=== PATIENT | male | born 1955 | race Two or more races ===

== ENCOUNTER 2021-02-20 17:28 | Outpatient (AMBR) | payer BC, SELFPAY ==
--- NOTE | 2021-01-29 11:24 | PT.OIERPT ---
PT OP Initial Eval Patient Information Visit Reasons: RIGHT SHOULDER PAIN Medical Diagnosis: M25.511 Treatment Dx #1: R shoulder weakness Start of Care: 01/29/21 Date of Onset: Oct 30, 2020 Initial Assessment Subjective Pt is 65 yr old male who reports onset of R biceps weakness and mild, achy pain that is dull in October. He got the Covid shot on L shoulder the day before and woke up the next day with biceps weakness. 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 PMH: Type 2 DM, allergies, HTN Imaging: with provider Pt goal: to regain R UE strength and movement and be back where I want to be Objective R shoulder AROM: Strength: FF: full 3+/5 abd: full 3+/5 Erot: full R elbow AROM: Strength: Flexion: full 3+/5 Extension: full Mid trapezius: 3+/5 Low trapezius: 3+/5 special testing: Deandra Darrion: negative Drop arm: negative Robbins's: negative C/S screen: negative for referred pain TTP: moderate over long head of biceps at bicipital groove. Neuro: DTR's C5,6 2+ Assessment Pt presents with marked R bicep weakness and moderate TTP of long head biceps tendon. Pt has periscapular mm weakness of low and mid trapezius and R shoulder is higher and shoulders shifted to the R in standing. Pt requires skilled therapy in order to improve scapular stability and R UE strength and he has fair rehab potential. Eval followed by HEP with materials. 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 Ind with HEP 2. Improved bicep, mid and low trapezius strength to at least 4/5 3. Pt will be able to lift at least 10lbs on the R Treatment Plan 1. Manual therapy 2 Therex 3. Modalities as indicated, MHP, ice, TENS Frequency and Duration 2x a week for 6 weeks Certification Dates: 01/29/21 to 05/01/21 Office Procedures PT Procedures PT Date of Service: 01/29/21 OP PT Eval Mod Complex 30 minutes: Yes
--- NOTE | 2021-02-03 19:47 | PTNOTE_ITS ---
PT Outpatient Daily Note Date of Service: 02/03/21 OP Daily Note Visit Reasons: RIGHT SHOULDER PAIN Outpatient Physical Therapy Treatment Date: 02/03/21 Subjective: Pt reports pain at the lower tip of the R scapula. Objective: See F/S for therex MT: STM R scapular borders x15' Assessment: Pt has good scapular depression strength but pain refers from lower pole of scapula to upper T/S and from T6 region along rib to anterior ribs. Plan: Continue per POC Length of Time (minutes) of Treatment: 30 Minutes Office Procedures PT Procedures PT Date of Service: 01/29/21 OP PT Eval Mod Complex 30 minutes: Yes PT Procedures PT Date of Service: 02/03/21 Therapeutic Exercise 15 minutes: Yes Manual Infrastructure Project Manager 15 minutes: Yes
--- NOTE | 2021-02-05 18:51 | PT.ODAYNRPT ---
PT Outpatient Daily Note Date of Service: 02/05/21 OP Daily Note Visit Reasons: RIGHT SHOULDER PAIN Outpatient Physical Therapy Treatment Date: 02/05/21 Subjective: Pt reports pain at the lower tip of the R scapula. 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 He was unable to lift bodyblade today into elbow flexion. Plan: Continue per POC Length of Time (minutes) of Treatment: 30 Minutes Office Procedures PT Procedures PT Date of Service: 01/29/21 OP PT Eval Mod Complex 30 minutes: Yes PT Procedures PT Date of Service: 02/03/21 Therapeutic Exercise 15 minutes: Yes Manual Purchasing Analyst 15 minutes: Yes PT Procedures PT Date of Service: 02/05/21 Therapeutic Exercise 15 minutes: Yes Manual Purchasing Analyst 15 minutes: Yes
--- NOTE | 2021-02-11 18:43 | PTNOTE_ITS ---
PT Outpatient Daily Note Date of Service: 02/11/21 OP Daily Note Visit Reasons: RIGHT SHOULDER PAIN Outpatient Physical Therapy Treatment Date: 02/11/21 Subjective: Pt reports pain at the lower tip of the R scapula. 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 He was unable to lift bodyblade today into elbow flexion. Plan: Continue per POC Office Procedures PT Procedures PT Date of Service: 01/29/21 OP PT Eval Mod Complex 30 minutes: Yes PT Procedures PT Date of Service: 02/03/21 Therapeutic Exercise 15 minutes: Yes Manual Clinical Psychologist Licensed 15 minutes: Yes PT Procedures PT Date of Service: 02/05/21 Therapeutic Exercise 15 minutes: Yes Manual Clinical Psychologist Licensed 15 minutes: Yes PT Procedures PT Date of Service: 02/11/21 Therapeutic Exercise 30 minutes: Yes
--- NOTE | 2021-02-13 18:17 | PT.ODAYNRPT ---
PT Outpatient Daily Note Date of Service: 02/13/21 OP Daily Note Visit Reasons: RIGHT SHOULDER PAIN Outpatient Physical Therapy Treatment Date: 02/13/21 Subjective: Pt reports pain at the lower tip of the R scapula. Objective: See F/S for therex MT: STM pec minor and periscapular mm's on R, x10' Assessment: Pt has less pain of R scalenes upper brachial plexus area today but continued periscapular mm weakness along with biceps and deltoid weakness. He was able to lift bodyblade today into elbow flexion for about 1-2 minutes. Plan: Continue per POC Length of Time (minutes) of Treatment: 30 Minutes Office Procedures PT Procedures PT Date of Service: 01/29/21 OP PT Eval Mod Complex 30 minutes: Yes PT Procedures PT Date of Service: 02/03/21 Therapeutic Exercise 15 minutes: Yes Manual Spine Supervisor 15 minutes: Yes PT Procedures PT Date of Service: 02/05/21 Therapeutic Exercise 15 minutes: Yes Manual Spine Supervisor 15 minutes: Yes PT Procedures PT Date of Service: 02/11/21 Therapeutic Exercise 30 minutes: Yes PT Procedures PT Date of Service: 02/13/21 Therapeutic Activity 15 minutes: Yes Manual Spine Supervisor 15 minutes: Yes
--- NOTE | 2021-02-18 20:02 | PTNOTE_ITS ---
PT Outpatient Daily Note Date of Service: 02/18/21 OP Daily Note Visit Reasons: RIGHT SHOULDER PAIN Outpatient Physical Therapy Treatment Date: 02/18/21 Subjective: Pt reports he feels weaker than before in the R bicep Objective: See F/S for therex Assessment: Pt has less pain of R scalenes upper brachial plexus area today but continued periscapular mm weakness along with biceps and deltoid weakness. He was able to lift bodyblade today into elbow flexion for about 1 minute. Plan: Continue per POC Length of Time (minutes) of Treatment: 30 Minutes Office Procedures PT Procedures PT Date of Service: 01/29/21 OP PT Eval Mod Complex 30 minutes: Yes PT Procedures PT Date of Service: 02/03/21 Therapeutic Exercise 15 minutes: Yes Manual Assembling Fabricator 15 minutes: Yes PT Procedures PT Date of Service: 02/05/21 Therapeutic Exercise 15 minutes: Yes Manual Assembling Fabricator 15 minutes: Yes PT Procedures PT Date of Service: 02/11/21 Therapeutic Exercise 30 minutes: Yes PT Procedures PT Date of Service: 02/18/21 Therapeutic Exercise 30 minutes: Yes PT Procedures PT Date of Service: 02/13/21 Therapeutic Activity 15 minutes: Yes Manual Assembling Fabricator 15 minutes: Yes
--- NOTE | 2021-02-20 18:19 | PTNOTE_ITS ---
PT Outpatient Daily Note Date of Service: 02/20/21 OP Daily Note Visit Reasons: RIGHT SHOULDER PAIN Outpatient Physical Therapy Treatment Date: 02/20/21 Subjective: Pt reports he feels weaker than before in the R bicep Objective: See F/S for therex Assessment: Pt has less pain of R scalenes upper brachial plexus area today but continued periscapular mm weakness along with biceps and deltoid weakness. He was able to lift bodyblade today into elbow flexion for about 1 minute. Plan: Continue per POC Length of Time (minutes) of Treatment: 30 Minutes Office Procedures PT Procedures PT Date of Service: 01/29/21 OP PT Eval Mod Complex 30 minutes: Yes PT Procedures PT Date of Service: 02/03/21 Therapeutic Exercise 15 minutes: Yes Manual Tool And Machine Maintainer 15 minutes: Yes PT Procedures PT Date of Service: 02/05/21 Therapeutic Exercise 15 minutes: Yes Manual Tool And Machine Maintainer 15 minutes: Yes PT Procedures PT Date of Service: 02/11/21 Therapeutic Exercise 30 minutes: Yes PT Procedures PT Date of Service: 02/18/21 Therapeutic Exercise 30 minutes: Yes PT Procedures PT Date of Service: 02/20/21 Therapeutic Exercise 30 minutes: Yes PT Procedures PT Date of Service: 02/13/21 Therapeutic Activity 15 minutes: Yes Manual Tool And Machine Maintainer 15 minutes: Yes
== END 2021-02-24 23:59 | disposition home or self-care (01) ==
PROVIDERS: PCP Family Medicine; Referring Provider Family Medicine; Visit Provider Family Medicine
DX: M25.511 Pain in right shoulder (principal); R53.1 Weakness; E11.9 Type 2 diabetes mellitus without complications; I10 Essential (primary) hypertension
CPT/HCPCS: 97110; 97140; 97162; 97530

== ENCOUNTER 2021-03-24 17:19 | Outpatient (AMBR) | payer BC, SELFPAY ==
--- NOTE | 2021-02-25 18:43 | PTNOTE_ITS ---
PT Outpatient Daily Note Date of Service: 02/25/21 OP Daily Note Visit Reasons: RIGHT SHOULDER PAIN Outpatient Physical Therapy Treatment Date: 02/25/21 Subjective: Pt reports pain of R scapula and points to medial border and inferior pole and sites of pain Objective: See F/S for therex MT: STM medial and inferior scap borders x10' Assessment: Pt has periscapular mm weakness and pain of medial and inferior scapula borders. Plan: Continue per POC Length of Time (minutes) of Treatment: 45 Minutes Office Procedures PT Procedures PT Date of Service: 02/25/21 Therapeutic Exercise 30 minutes: Yes Manual Director Epidemiology 15 minutes: Yes
--- NOTE | 2021-02-27 18:44 | PT.ODAYNRPT ---
PT Outpatient Daily Note Date of Service: 02/27/21 OP Daily Note Visit Reasons: RIGHT SHOULDER PAIN Outpatient Physical Therapy Treatment Date: 02/27/21 Subjective: Pt reports pain of R scapula and points to medial border and inferior pole and sites of pain. The R bicep is slightly stronger since starting therapy. Objective: See F/S for therex Assessment: Pt has periscapular mm weakness and pain of medial and inferior scapula borders. Plan: Continue per POC Length of Time (minutes) of Treatment: 30 Minutes Office Procedures PT Procedures PT Date of Service: 02/27/21 Therapeutic Exercise 30 minutes: Yes PT Procedures PT Date of Service: 02/25/21 Therapeutic Exercise 30 minutes: Yes Manual Heavy Duty Truck Mechanic 15 minutes: Yes
--- NOTE | 2021-03-03 18:35 | PT.ODAYNRPT ---
PT Outpatient Daily Note Date of Service: 03/03/21 OP Daily Note Visit Reasons: RIGHT SHOULDER PAIN Outpatient Physical Therapy Treatment Date: 03/03/21 Subjective: Pt reports pain of R scapula and points to medial border and inferior pole and sites of pain. The R bicep is slightly stronger since starting therapy. Objective: See F/S for therex Assessment: Pt has periscapular mm weakness and pain of medial and inferior scapula borders. Good response to foam roller to reduce back pain today. Plan: Continue per POC Length of Time (minutes) of Treatment: 30 Minutes Office Procedures PT Procedures PT Date of Service: 02/27/21 Therapeutic Exercise 30 minutes: Yes PT Procedures PT Date of Service: 03/03/21 Therapeutic Exercise 30 minutes: Yes PT Procedures PT Date of Service: 02/25/21 Therapeutic Exercise 30 minutes: Yes Manual Environmental Management Specialist 15 minutes: Yes
--- NOTE | 2021-03-17 18:18 | PTNOTE_ITS ---
PT Outpatient Daily Note Date of Service: 03/17/21 OP Daily Note Visit Reasons: RIGHT SHOULDER PAIN Outpatient Physical Therapy Treatment Date: 03/17/21 Subjective: Pt reports pain of R scapula and points to medial border and inferior pole and sites of pain. The R bicep is slightly stronger since starting therapy. Objective: See F/S for therex Assessment: Pt has periscapular mm weakness and pain of medial and inferior scapula borders. Good response to foam roller to reduce back pain today. Plan: Continue per POC Length of Time (minutes) of Treatment: 30 Minutes Office Procedures PT Procedures PT Date of Service: 02/27/21 Therapeutic Exercise 30 minutes: Yes PT Procedures PT Date of Service: 03/03/21 Therapeutic Exercise 30 minutes: Yes PT Procedures PT Date of Service: 03/17/21 Therapeutic Exercise 30 minutes: Yes PT Procedures PT Date of Service: 02/25/21 Therapeutic Exercise 30 minutes: Yes Manual Dehydrogenation Operator Head 15 minutes: Yes
--- NOTE | 2021-03-24 18:45 | PT.ODAYNRPT ---
PT Outpatient Daily Note Date of Service: 03/24/21 OP Daily Note Visit Reasons: RIGHT SHOULDER PAIN Outpatient Physical Therapy Treatment Date: 03/24/21 Subjective: Pt reports pain of R scapula and points to medial border and inferior pole and sites of pain. The R bicep is slightly stronger since starting therapy. Objective: See F/S for therex MT: STM R medial scap border and levator scap mm, HVT x3 PA to T/S x10' total Assessment: Pt has periscapular mm weakness and pain of medial and inferior scapula borders. R medial scapular border pain may be related to R biceps weakness. Plan: Continue per POC Length of Time (minutes) of Treatment: 30 Minutes Office Procedures PT Procedures PT Date of Service: 02/27/21 Therapeutic Exercise 30 minutes: Yes PT Procedures PT Date of Service: 03/03/21 Therapeutic Exercise 30 minutes: Yes PT Procedures PT Date of Service: 03/17/21 Therapeutic Exercise 30 minutes: Yes PT Procedures PT Date of Service: 02/25/21 Therapeutic Exercise 30 minutes: Yes Manual Professional Healthcare Representative 15 minutes: Yes PT Procedures PT Date of Service: 03/24/21 Therapeutic Exercise 15 minutes: Yes Manual Professional Healthcare Representative 15 minutes: Yes
== END 2021-03-26 23:59 | disposition home or self-care (01) ==
PROVIDERS: PCP Family Medicine; Referring Provider Family Medicine; Visit Provider Family Medicine
DX: M25.511 Pain in right shoulder (principal); R53.1 Weakness; E11.9 Type 2 diabetes mellitus without complications; I10 Essential (primary) hypertension
CPT/HCPCS: 97110; 97140

== ENCOUNTER 2021-04-01 17:35 | Outpatient (AMBR) | payer BC, SELFPAY ==
--- NOTE | 2021-04-01 19:08 | PT.ODS1RPT ---
PT OP Progress/Discharge Note Date of Service: 04/01/21 Progress Note/DC Note Progress Note/Discharge Note: DC Note Patient Information Visit Reasons: RIGHT SHOULDER PAIN Service Continue Service or Discharge: Discharge Discharge Date: 04/01/21 Status Subjective: Pt reports improved R bicep strength since starting therapy but is not where I want to be and wants to be stronger Objective: R biceps strength: 3+/5 R shoulder strength: FF: 4-/5 Abd: 4-/5 Assessment: Pt has attended 12/12 visits on the plan of care and made slow progress with biceps strengthening. He can hold about 7 lbs for about 30 seconds maximum. He has improved shoulder strength and improved therex endurance grossly but continued bicep weakness possibly consistent with C5 nerve impingement, brachial plexus injury like Erb's palsy and/or a T4 syndrome peripheral neuropathy. He may benefit from further diagnostic imaging. Pt is not having significant pain just marked bicep weakness. Plan: Pt is discharged to provider for further workup Office Procedures PT Procedures PT Date of Service: 04/01/21 Therapeutic Exercise 30 minutes: Yes
== END 2021-04-26 23:59 | disposition home or self-care (01) ==
PROVIDERS: PCP Family Medicine; Referring Provider Family Medicine; Visit Provider Family Medicine
DX: M25.511 Pain in right shoulder (principal); R53.1 Weakness; E11.9 Type 2 diabetes mellitus without complications; I10 Essential (primary) hypertension
CPT/HCPCS: 97110

== ENCOUNTER → 2024-12-22 | Outpatient (CLI) | payer OTHER, SELFPAY ==
[2024-12-22 12:29] LABS: Collection Type, Urine Clean Catch; Squamous Epithelial Cell,Urine 0 /hpf (0-5)
[2024-12-22 12:38] LABS: Basophils % (Auto) 1 % (0-2.5); Eosinophils # (Auto) 0.1 Thou/mm3 (0.0-0.5); Eosinophils % (Auto) 1 % (0-10); Hematocrit 36.6 % (41.0-53.0); Hemoglobin 13.2 g/dL (13.5-16.0); Immature Granulocytes % (Auto) 0 % (0-0); Immature Granulocytes Auto 0.03 Thou/mm3 (0.00-0.00); Lymphocytes # (Auto) 1.6 Thou/mm3 (1.0-4.8); Lymphocytes % (Auto) 23 % (10-50); Mean Corpuscular HGB Conc 36.1 g/dl (31.0-37.0); Mean Corpuscular Hemoglobin 30.4 pg (25.0-35.0); Mean Corpuscular Volume 84 fL (80-100); Monocytes # (Auto) 0.4 Thou/mm3 (0.0-0.8); Monocytes % (Auto) 6 % (0-12); Neutrophils # (Auto) 4.6 Thou/mm3 (1.8-7.7); Neutrophils % (Auto) 69 % (37-80); Nucleated Red Blood Cell % 0 /100 WBC (0); Platelet Count 202 Thou/mm3 (140-440); Red Blood Count 4.34 Miln/mm3 (4.50-5.90); White Blood Count 6.7 Thou/mm3 (3.8-10.6)
[2024-12-22 12:48] LABS: Bilirubin,Urine Negative (Negative); Blood,Urine Negative (Negative); Clarity,Urine Clear (Clear/Hazy); Color,Urine Yellow (Lt Yel-Yel); Glucose, Urine 4+ (Negative); Hyaline Casts,Urine < 1 /hpf (0-1); Ketones,Urine Negative (Negative); Leukocyte Esterase,Urine Negative (Negative); Nitrite,Urine Negative (Negative); PH,Urine 6.5 (5.0-7.0); Protein,Urine 3+ (Neg - Trace); RBC,Urine 2 /hpf (0-3); Specific Gravity,Urine 1.028 (1.001-1.035); Urobilinogen,Urine Negative mg/dL (0.0-1.0); WBC,Urine < 1 /hpf (0-5)
[2024-12-22 12:56] LABS: Creatinine MALB Rnd Ur 85 mg/dL (30-125); Microalbumin Creat Ratio 447 mg/gCrea (<30); Microalbumin, Random Urine > 380 mg/L (0-300)
[2024-12-22 12:57] LABS: Glucose Estimated Average 280 mg/dL (80-131); Hemoglobin A1C 11.4 % Hgb (4.8-6.0); PSA Medicare Annual Scrn 49.19 ng/mL (0-4.00)
[2024-12-22 13:17] LABS: Alanine Aminotransferase 20 U/L (10-49); Albumin, Serum 4.3 gm/dL (3.4-4.8); Alkaline Phosphatase 105 U/L (46-116); Anion Gap 10 (7-16); Aspartate Amino Transferase 16 U/L (0-34); BUN/Creatinine Ratio 15 Ratio (12-20); Blood Urea Nitrogen 19 mg/dL (9-23); Calcium 9.6 mg/dL (8.3-10.6); Calcium (Corrected) 9.6 mg/dL (8.5-10.1); Carbon Dioxide 26.2 mMol/L (20.0-31.0); Chloride 103 mMol/L (98-107); Creatinine (Component) 1.3 mg/dL (0.6-1.3); Globulin 2.2 gm/dL (2.3-3.5); Glucose 257 mg/dL (74-106); Osmolality,Calculated 288 (275-295); Potassium 4.7 mMol/L (3.4-5.1); Sodium 139 mMol/L (136-145); Thyroid Stimulating Hormone 0.87 uIU/mL (0.55-4.78); Total Protein 6.5 gm/dL (5.7-8.2); eGFR 60 See Note
[2024-12-22 14:12] LABS: Bilirubin,Total 0.5 mg/dL (0.3-1.2)
== END | disposition home or self-care (01) ==
PROVIDERS: PCP Internal Medicine; Referring Provider Internal Medicine; Visit Provider Internal Medicine
DX: E11.65 Type 2 diabetes mellitus with hyperglycemia (principal); E78.5 Hyperlipidemia, unspecified; F31.9 Bipolar disorder, unspecified; I10 Essential (primary) hypertension; N52.8 Other male erectile dysfunction; R80.9 Proteinuria, unspecified
CPT/HCPCS: 36415; 80053; 81001; 82043; 82570; 83036; 84153; 84443; 85025; G0103